=== PATIENT | female | born 1965 | race Caucasian/White ===

== ENCOUNTER 2016-12-03 07:03 | Inpatient (IN) | payer OTHER ==
[~2016-12-03] VITALS: Ht 152.4 cm; Wt 51.9 kg
[2016-12-03] VITALS (10 sets, daily range): BP systolic 103–142; BP diastolic 55–80; PULSE 65–80; TEMP 97.2–98.6
[~2016-12-03 07:03] MED LIST: ASPIRIN 81M81 MG/TA2 PO; GILDAGIA PO; PRINIVIL10 MG PO
[2016-12-03] MEDS ORDERED: MULTI VITAMINS1 TAB PO (07:51)
[2016-12-03] MEDS ORDERED: PROBIOTIC FORMU1 CAP PO (07:51)
[2016-12-04 02:08] VITALS: BP 133/70; PULSE 76; TEMP 97.8
[2016-12-04 05:22] VITALS: BP 130/57; PULSE 61; TEMP 97.6
[2016-12-04] MEDS ORDERED: PERCOCET 325 MG1 TA2 PO (08:24)
[2016-12-04] MEDS ORDERED: IBU600 MG PO (08:24)
[2016-12-04] MEDS ORDERED: ESTRACE 1MG1 MG/TAB PO (08:25)
== END 2016-12-04 11:23 | disposition home or self-care (01) | DRG 743 ==
LOC: SDCO 07:03 → EDSTATUS 09:00 → SDCO 09:00 → OR 09:00 → JCC 10:53
PROVIDERS: Obstetrics & Gynecology
PROC: 0UT7FZZ Resection of Bilateral Fallopian Tubes, Via Natural or Artificial Opening With Percutaneous Endoscopic Assistance (ICD-10-PCS; 2016-12-03)
PROC: 0UT9FZZ Resection of Uterus, Via Natural or Artificial Opening With Percutaneous Endoscopic Assistance (ICD-10-PCS; principal; 2016-12-03 09:00)
PROC: 0UTC7ZZ Resection of Cervix, Via Natural or Artificial Opening (ICD-10-PCS; 2016-12-03 09:00)
PROC: 0UT2FZZ Resection of Bilateral Ovaries, Via Natural or Artificial Opening With Percutaneous Endoscopic Assistance (ICD-10-PCS; 2016-12-03 09:00)
DX: D25.1 Intramural leiomyoma of uterus (principal); I10 Essential (primary) hypertension
CPT/HCPCS: J0171; J0690; J1100; J1885; J2405; J2704; J3010; J7120

== ENCOUNTER → 2017-03-11 | Outpatient (CLI) | payer OTHER ==
[~2017-03-11] MED LIST changes: +ESTRACE 1MG1 MG/TAB PO; +IBU600 MG PO; +MULTI VITAMINS1 TAB PO; +NORCO 325 MG-51 TAB PO; +PERCOCET 325 MG1 TA2 PO; +PROBIOTIC FORMU1 CAP PO
== END ==
LOC: MC.RAD 08:12
DX: Z12.31 Encounter for screening mammogram for malignant neoplasm of breast (principal)

== ENCOUNTER 2017-04-09 12:51 | Emergency (ER) | payer OTHER ==
[~2017-04-09] VITALS: Ht 152.4 cm; Wt 51.4 kg
[~2017-04-09 12:51] MED LIST changes: -NORCO 325 MG-51 TAB PO
[2017-04-09 12:54] VITALS: BP 150/92; PULSE 80; TEMP 97.9
[2017-04-09] MEDS ORDERED: NORCO 325 MG-51 TAB PO (14:30)
== END 2017-04-09 14:38 | disposition home or self-care (01) ==
LOC: COL.ER 12:51
DX: S92.422A Displaced fracture of distal phalanx of left great toe, initial encounter for closed fracture (principal); W23.0XXA Caught, crushed, jammed, or pinched between moving objects, initial encounter; I10 Essential (primary) hypertension

== ENCOUNTER → 2019-05-18 | Outpatient (CLI) | payer BC ==
[~2019-05-18] MED LIST changes: +NORCO 325 MG-51 TAB PO
== END ==
LOC: MC.RAD 07:13
DX: Z12.31 Encounter for screening mammogram for malignant neoplasm of breast (principal)

== ENCOUNTER → 2021-06-12 | Outpatient (CLI) | payer BC ==
[~2021-06-12] MED LIST changes: +CITRACAL + D CA1 TAB PO; +FOSAMAX 70MG TA70 MG PO
== END ==
LOC: MC.RAD 10:33
DX: Z12.31 Encounter for screening mammogram for malignant neoplasm of breast (principal)

== ENCOUNTER 2021-08-07 07:04 | Day surgery (SDC) | payer BC ==
[~2021-08-07] VITALS: Ht 152.4 cm; Wt 56.1 kg
[~2021-08-07 07:04] MED LIST changes: -CITRACAL + D CA1 TAB PO; -FOSAMAX 70MG TA70 MG PO
[2021-08-07] MEDS ORDERED: CITRACAL + D CA1 TAB PO (07:28)
[2021-08-07] MEDS ORDERED: FOSAMAX 70MG TA70 MG PO (07:29)
[2021-08-07 07:39] VITALS: BP 158/86; PULSE 68; TEMP 98.2
[2021-08-07 08:25] VITALS: BP 97/53; PULSE 75; TEMP 98.4
--- NOTE | 2021-08-07 08:25 | NUR ---
Pt to GI [facility] 4 via cart from ENDO. Pt awake and alert. Denies pain or nausea. Pt ambulates to recliner with stand by assist. VSS. in room. Jello and coffee given per pt request. Will continue to monitor. Call light within reach.
[2021-08-07 08:40] VITALS: BP 118/71; PULSE 74
--- NOTE | 2021-08-07 08:40 | NUR ---
Pt continues to rest. Tolerating food and fluids without difficulties. Call light within reach.
[2021-08-07 08:55] VITALS: BP 129/70; PULSE 66
--- NOTE | 2021-08-07 09:00 | NUR ---
Discharge instructions reviewed. Pt voices understanding. IV site discontinued with all parts intact. Pt up to dress. Call light within reach.
--- NOTE | 2021-08-07 09:20 | NUR ---
Pt escorted to private car. Pt accompanied home by her .
== END 2021-08-07 09:20 | disposition home or self-care (01) ==
LOC: SDCO 07:04
DX: Z12.11 Encounter for screening for malignant neoplasm of colon (principal); I10 Essential (primary) hypertension; Z79.899 Other long term (current) drug therapy
CPT/HCPCS: J2704; J3010; J7030

== ENCOUNTER 2022-01-17 18:11 | Emergency (ER) | payer BC ==
[~2022-01-17] VITALS: Ht 152.4 cm; Wt 55.9 kg
[~2022-01-17 18:11] MED LIST changes: +CITRACAL + D CA1 TAB PO; +FOSAMAX 70MG TA70 MG PO
[2022-01-17 18:29] VITALS: TEMP 98
[2022-01-17] MEDS ORDERED: CELEBREX 200MG200 MG PO (18:33)
[2022-01-17] MEDS ORDERED: FIORICET 325 MG1 TA1 PO (18:34)
[2022-01-17 19:32] LABS: BASO # 0.1 K/mm3 (0.0-0.2); BASO % 0.8 % (0.0-2.0); EOS # 0.1 K/mm3 (0.0-0.7); EOS % 0.6 % (0.0-4.0); GRAN # 9.1 K/mm3 (1.4-6.5); GRAN % 69.7 % (42.2-75.2); HEMATOCRIT 38.9 % (37.0-47.0); HEMOGLOBIN 13.3 g/dl (12.5-16.0); LYMPH # 2.9 K/mm3 (1.2-3.4); LYMPH % 22.4 % (20.0-51.0); MEAN CELL VOLUME 89 fl (80.0-100.0); MEAN CORPUSCULAR HEMOGLOBIN 30 pg (27-31); MEAN CORPUSCULAR HGB CONC 34 g/dl (33.0-37.0); MEAN PLATELET VOLUME 11.5 fl (7.4-10.4); MONO # 0.7 K/mm3 (0.1-0.6); MONO % 5.7 % (1.7-9.3); PLATELET COUNT 336 K/mm3 (130-400); RED BLOOD COUNT 4.39 M/mm3 (4.10-5.30); REDCELL DISTRIBUTION WIDTH-CV 13.7 % (11.5-14.5)
[2022-01-17 19:47] LABS: ALANINE AMINOTRANSFERASE 14 U/L (0-55); ALBUMIN 3.9 gm/dL (3.5-5.0); ALKALINE PHOSPHATASE 90 U/L (40-150); ANION GAP 11 mmol/L (7-16); AST,SGOT 15 U/L (5-34); BILIRUBIN,TOTAL 0.3 mg/dL (0.2-1.2); BLOOD UREA NITROGEN 19 mg/dL (10-20); CALCIUM 9.6 mg/dL (8.4-10.2); CARBON DIOXIDE 21 mmol/L (22-29); CHLORIDE 101 mmol/L (98-107); CREATININE, serum 0.97 mg/dL (0.57-1.11); GLUCOSE 114 mg/dL (70-99); POTASSIUM 3.8 mmol/L (3.5-4.5); SODIUM 133 mmol/L (136-145); TOTAL PROTEIN 7.6 gm/dL (6.2-8.1)
[2022-01-17 19:59] LABS: ALCOHOL(ethanol),MEDICAL < 10 mg/dL (0-10); TROPONIN-I < 0.010 ng/mL (0.00-0.033)
[2022-01-17 20:45] VITALS: BP 138/78; PULSE 80
== END 2022-01-17 20:49 | disposition home or self-care (01) ==
LOC: COL.ER 18:11
PROVIDERS: Physician Assistant
DX: R55 Syncope and collapse (principal); D72.829 Elevated white blood cell count, unspecified; R51.9 Headache, unspecified; Z79.899 Other long term (current) drug therapy

== ENCOUNTER → 2022-09-14 | Outpatient (CLI) | payer BC ==
[~2022-09-14] MED LIST changes: +CELEBREX 200MG200 MG PO; +FIORICET 325 MG1 TA1 PO
== END ==
LOC: MHCPAIN 08:38
DX: M79.18 Myalgia, other site (principal); M54.2 Cervicalgia; R51.9 Headache, unspecified; M47.812 Spondylosis without myelopathy or radiculopathy, cervical region
CPT/HCPCS: G0463; J1040

== ENCOUNTER → 2024-01-31 | Outpatient (CLI) | payer OTHER | LOC: MC.RAD 08:50 | DX: Z12.31 Encounter for screening mammogram for malignant neoplasm of breast (principal) ==